=== PATIENT | male | born 1965 | race African-American/Black ===

== ENCOUNTER 2020-12-05 11:59 | Emergency (ER) | payer OTHER ==
[~2020-12-05] VITALS: Ht 172.7 cm; Wt 77.1 kg
[~2020-12-05 11:59] MED LIST: CEFTIN 250 MG250 MG IV; HYDROCODONE-AP1 EA11 PO; HYDROCODONE-AP1 EAC6 PO; KEFLEX500 M1 PO
[2020-12-05 13:37] LABS: HEMATOCRIT 48.8 % (42.0-52.0); HEMOGLOBIN 16.4 gm/dL (14.0-18.0); MCH 31.3 pg (26.0-34.0); MCHC 33.6 g/dL (28.0-37.0); MCV 93.2 fL (80.0-100.0); RBC 5.23 mil/uL (4.50-6.00); RDW 13.3 % (10.5-14.5); WBC 9.7 thou/uL (4.0-11.0)
[2020-12-05 13:44] LABS: URINE BILIRUBIN NEGATIVE (Negative); URINE BLOOD NEGATIVE (Negative); URINE CLARITY CLEAR; URINE COLOR YELLOW; URINE GLUCOSE-RANDOM* NEGATIVE (Negative); URINE KETONES NEGATIVE (Negative); URINE LEUKOCYTES-REFLEX NEGATIVE (Negative); URINE NITRITE-REFLEX NEGATIVE (Negative); URINE PROTEIN (DIPSTICK) NEGATIVE (Negative); URINE SPECIFIC GRAVITY >= 1.030 (1.005-1.035); URINE UROBILINOGEN 0.2 E.U./dl (0.2-1.0)
[2020-12-05 13:47] LABS: ANION GAP 7 mmol/L (7-16); BUN 29 mg/dL (7-18); CALCIUM 9.1 mg/dL (8.5-10.1); CHLORIDE 105 mmol/L (98-107); CO2 28 mmol/L (21-32); CREATININE 1.8 mg/dL (0.7-1.3); GLUCOSE 91 mg/dL (74-106); POTASSIUM 4.7 mmol/L (3.5-5.1); SODIUM 140 mmol/L (136-145)
[2020-12-05 13:57] LABS: ALBUMIN 4.6 g/dL (3.4-5.0); SGOT 26 U/L (15-37); SGPT 27 U/L (30-65); TOTAL BILIRUBIN 0.6 mg/dL (0.2-1.0); TOTAL PROTEIN 8.6 g/dL (6.4-8.2); TROPONIN-I <0.06 ng/mL (<0.06)
[2020-12-05 15:10] VITALS: BP 145/94
--- NOTE | 2020-12-06 09:22 | EKG ---
[address] [address] [place] [address] ELECTROCARDIOGRAM REPORT Name: AMARI MCCORD Room #: [facility] [id number] Admission: 12/05/20 Attend Phys: Discharge: 12/05/20 Date of : 69 Report #: [id number] [facility] ED Test Date: 2020-12-05 Test Time: 12:50:34 Pat Name: AMARI MCCORD Department: Room: Gender: M Rn [facility]: [facility] : 1965 Requested By: Renay Buckley Order Number: [id number] MD: Rahat Hannah Measurements Intervals [place] Rate: 68 P: 73 MD: 170 QRS: 55 QRSD: 85 T: 51 QT: 351 QTc: 374 Interpretive Statements Sinus rhythm OSORIO, consider biatrial enlargement Probable left ventricular hypertrophy ST elevation suggests acute pericarditis No previous ECG available for comparison Electronically Signed On 12-06-2020 9:22:14 CDT by Rahat Hannah [email or web address] <ELECTRONICALLY SIGNED> By: Rahat Hannah MD, [facility] 12/06/20 0922 1250 1250 Rahat Hannah MD, FACC /EPI
== END 2020-12-05 15:10 | disposition home or self-care (01) ==
LOC: ER 11:59
PROVIDERS: Nurse Practitioner Family
DX: N17.9 Acute kidney failure, unspecified (principal); E86.0 Dehydration; Z79.2 Long term (current) use of antibiotics